=== PATIENT | female | born 1985 | race Caucasian/White ===

== ENCOUNTER 2017-06-03 10:54 | Emergency (ER) | payer SELFPAY ==
[~2017-06-03] VITALS: Ht 162.6 cm; Wt 68.5 kg
[2017-06-03 10:58] VITALS: BP 129/80
--- NOTE | 2017-06-03 11:25 | NUR ---
31f bib self with c/o / "constant" non radiating "sharp" forehead heachache x "1 year". Pt sts she has been seen at [place] for same c/o and was discharged, but has come here today for a "scan of her head". Pt denies taking any OTC medication for CLARK at home, bc pt sts "I don't like taking medication". Pt appears restlessness and anxious. Pt denies any changes in her vision or nausea. Pt is aox4 with steady gait. GCS=15. RR are even and unlabored. Skin warm/pink/dry. NAD. VSS. Awaiting Er md gutierrez. All needs met at this time. Will continue to monitor.
--- NOTE | 2017-06-03 12:45 | NUR ---
PT TO XRAY VIA W/C ACCOMPANIED BY DRILL PRESS OPERATOR HELPER
--- NOTE | 2017-06-03 12:45 | NUR ---
Estuardo casas in ED - 06/03/17 at 1324 by ASHLIE PT TO CT VIA W/C ACCOMPANIED BY IRRIGATION FLUME LAYER
--- NOTE | 2017-06-03 13:03 | NUR ---
PT RETURNED FROM XRAY VIA W/C ACCOMPANIED BY RADIOLOG TECH
[2017-06-03 13:50] VITALS: BP 132/83
== END 2017-06-03 13:50 | disposition home or self-care (01) ==
LOC: MED 10:54
DX: R51 Headache (principal); R10.9 Unspecified abdominal pain
CPT/HCPCS: 74018; 81025; 99283